=== PATIENT | female | born 1980 | race Caucasian/White ===

== ENCOUNTER → 2021-11-16 | Outpatient (REF) | payer BC | LOC: M SFHCDERM 12:40 | PROVIDERS: ATTEND Nurse Practitioner Family | DX: D23.71 Other benign neoplasm of skin of right lower limb, including hip (principal) ==

== ENCOUNTER → 2022-06-14 | Outpatient (CLI) | payer BC | LOC: M PLALAB 10:13 | PROVIDERS: ATTEND Nurse Practitioner Women's Health | DX: Z13.79 Encounter for other screening for genetic and chromosomal anomalies (principal); Z80.0 Family history of malignant neoplasm of digestive organs ==

== ENCOUNTER → 2023-08-08 | Outpatient (CLI) | payer BC ==
[~2023-08-08] MED LIST: ISOVUE-370 76% 100ML VIAL ONE
== END ==
LOC: M PLAIMG 13:01
PROVIDERS: ATTEND Nurse Practitioner Women's Health
DX: R92.2 Inconclusive mammogram (principal); Z91.89 Other specified personal risk factors, not elsewhere classified; N63.20 Unspecified lump in the left breast, unspecified quadrant; R92.30 Dense breasts, unspecified
CPT/HCPCS: C8908; Q9967

== ENCOUNTER → 2023-11-07 | Outpatient (CLI) | payer BC ==
[2023-11-07 15:41] LABS: BASO % 0.7 % (0.0-1.0); EOS # 0.1 10^3/uL (0.0-0.5); EOS % 1.6 % (0.0-3.0); HEMATOCRIT 39.4 % (36.0-47.0); HEMOGLOBIN 12.9 g/dl (12.0-15.5); LYMPH # 1.7 10^3/uL (1.5-5.0); LYMPH % 27.5 % (24.0-44.0); MEAN CORPUSCULAR HEMOGLOBIN 31.4 pg (27.0-33.0); MEAN CORPUSCULAR HGB CONC 32.7 g/dl (32.0-36.5); MEAN CORPUSCULAR VOLUME 95.9 fl (80.0-96.0); MONO # 0.4 10^3/uL (0.0-0.8); MONO % 6.8 % (2.0-8.0); NEUTROPHILS # 3.9 10^3/uL (1.5-8.5); NEUTROPHILS % 63.2 % (36.0-66.0); PLATELET COUNT, AUTOMATED 177 10^3/uL (150-450); RED BLOOD COUNT 4.11 10^6/uL (4.00-5.40); WHITE BLOOD COUNT 6.1 10^3/uL (4.0-10.0)
== END ==
LOC: M PLALAB 11:50
PROVIDERS: ATTEND Internal Medicine Infectious Disease
DX: R10.13 Epigastric pain (principal); A69.20 Lyme disease, unspecified

== ENCOUNTER → 2024-01-02 | Outpatient (CLI) | payer BC | LOC: M RAD 07:24 | PROVIDERS: ATTEND Physician Assistant | DX: K58.0 Irritable bowel syndrome with diarrhea (principal); Z86.010 Personal history of colon polyps ==